=== PATIENT | female | born 1995 | race Caucasian/White ===

== ENCOUNTER 2020-06-30 14:19 | Outpatient (REF) | payer OTHER, SELFPAY ==
[2020-06-30 15:08] LABS: COVID-19 Test Negative (Negative)
== END 2020-06-30 14:20 | disposition home or self-care (01) ==
LOC: HO.LAB 14:19
PROVIDERS: Visit Provider Internal Medicine
DX: Z20.828 Contact with and (suspected) exposure to other viral communicable diseases (principal)
CPT/HCPCS: 87635

== ENCOUNTER 2020-07-21 11:34 | Outpatient (REF) | payer OTHER, SELFPAY ==
[2020-07-21 12:31] LABS: MANUAL DIFF FLAG NO
[2020-07-21 12:50] LABS: Basophils Percent Auto 0.4 % (0-2); Eosinophils Absolute Auto 0.1 X10*3/uL (0.0-0.4); Eosinophils Percent Auto 1.8 % (0-4); Hematocrit 42.3 % (37-47); Hemoglobin 13.8 g/dl (12.0-16.0); Imm Gran Abs Auto 0.01 X10*3/uL (0.00-0.03); Imm Gran Pct Auto 0.1 % (0.0-0.4); Lymphocytes Absolute Auto 2.2 X10*3/uL (1.2-4.9); Lymphocytes Percent Auto 30.2 % (20-40); Mean Corpuscular HGB Conc 32.6 g/dl (31.0-35.0); Mean Corpuscular Hemoglobin 28.9 pg (27.0-33.0); Mean Corpuscular Volume 88.7 fL (80-98); Mean Platelet Volume 10.7 fL (9.4-12.3); Monocytes Absolute Auto 0.5 X10*3/uL (0.1-1.2); Monocytes Percent Auto 6.2 % (2-11); Neutrophils Absolute Auto 4.5 X10*3/uL (2.0-8.3); Neutrophils Percent Auto 61.3 % (45-73); Platelet Count 344 X10*3/uL (160-400); Red Blood Count 4.77 X10*6/uL (4.20-5.50); Red Cell Distribution Width 12.5 % (11.0-16.0); White Blood Count 7.4 X10*3/uL (4.8-10.8)
[2020-07-21 13:37] LABS: TSH reflex Free T4 0.58 mIU/mL (0.32-4.0); Vitamin D 25-OH Total 25.9 ng/mL (>30)
[2020-07-21 13:42] LABS: Folate 16.4 ng/mL (> or = 4.0); Vitamin B12 493 pg/mL (200-900)
== END 2020-07-21 11:35 | disposition home or self-care (01) ==
LOC: HO.LAB 11:34
PROVIDERS: Visit Provider Internal Medicine
DX: L65.9 Nonscarring hair loss, unspecified (principal); E55.9 Vitamin D deficiency, unspecified
CPT/HCPCS: 36415; 82306; 82607; 82746; 84443; 85025

== ENCOUNTER 2020-11-19 09:53 | Outpatient (REF) | payer OTHER, SELFPAY ==
[2020-11-19 10:56] LABS: Glucose Fasting 101 mg/dL (60-99)
[2020-11-19 11:24] LABS: Vitamin D 25-OH Total 25.3 ng/mL (>30)
== END 2020-11-19 09:54 | disposition home or self-care (01) ==
LOC: HO.LAB 09:53
PROVIDERS: PCP Internal Medicine; Visit Provider Internal Medicine
DX: Z00.01 Encounter for general adult medical examination with abnormal findings (principal); E55.9 Vitamin D deficiency, unspecified
CPT/HCPCS: 36415; 82306; 82947

== ENCOUNTER 2021-10-23 15:12 | Emergency (ER) | payer OTHER, SELFPAY ==
[2021-10-23 15:15] VITALS: BP 140/69; PULSE 79; RESP 18; TEMP 36.7; O2SAT 99; BMI 32.1
[2021-10-23 16:14] LABS: MANUAL DIFF FLAG NO
[2021-10-23 16:16] LABS: Basophils Percent Auto 0.2 % (0-2); Eosinophils Absolute Auto 0.1 X10*3/uL (0.0-0.4); Eosinophils Percent Auto 0.5 % (0-4); Hematocrit 41.8 % (37.0-47.0); Hemoglobin 13.8 g/dl (12.0-16.0); Imm Gran Abs Auto 0.04 X10*3/uL (0.00-0.03); Imm Gran Pct Auto 0.3 % (0.0-0.4); Lymphocytes Absolute Auto 2.1 X10*3/uL (1.2-4.9); Lymphocytes Percent Auto 16.5 % (20-40); Mean Corpuscular Hemoglobin 29.1 pg (27.0-33.0); Mean Platelet Volume 10.5 fL (9.4-12.3); Monocytes Absolute Auto 0.8 X10*3/uL (0.1-1.2); Monocytes Percent Auto 6.2 % (2-11); Neutrophils Absolute Auto 9.9 x10*3/uL (2.0-8.3); Neutrophils Percent Auto 76.3 % (45-73); Platelet Count 340 X10*3/uL (160-400); Red Blood Count 4.75 X10*6/uL (4.20-5.50); Red Cell Distribution Width 12.9 % (11.0-16.0); White Blood Count 12.9 X10*3/uL (4.8-10.8)
--- NOTE | 2021-10-23 16:37 | ECG_ITS ---
Test Reason : SYNCOPY Blood Pressure : / mmHG Vent. Rate : 075 BPM Atrial Rate : 075 BPM P-R Int : 126 ms QRS Dur : 112 ms QT Int : 394 ms P-R-T Axes : 059 041 062 degrees QTc Int : 439 ms Normal sinus rhythm with sinus arrhythmia Incomplete right bundle branch block Borderline ECG No previous ECGs available Referred By: Maria Dinh Electronically Signed By:BERNADINE SALAZAR MD
[2021-10-23 16:41] LABS: Alanine Aminotransferase 11 U/L (0-31); Albumin Level 5.1 g/dL (3.5-5.0); Alkaline Phosphatase 43 U/L (39-117); Anion Gap 12 (12-20); Aspartate Amino Transferase 15 U/L (5-31); Bilirubin Total 0.4 mg/dL (0.0-1.0); Blood Urea Nitrogen 7 mg/dL (9-16); Calcium 10.4 mg/dL (8.4-10.2); Carbon Dioxide 25 mmol/L (22-29); Chloride 109 mmol/L (96-108); Creatinine Clr Calc Pharmacy 112.2; Estimated Glomerular Filt Rate > 60; Glucose Random 93 mg/dL (60-115); Sodium 142 mmol/L (135-145); Total Protein 8.2 g/dL (6.5-8.0)
--- NOTE | 2021-10-23 16:48 | ED.GENADULT ---
HPI - General Adult General Chief complaint: General Medical Stated complaint: near syncope Time Seen by Provider: 10/23/21 16:27 Source: patient and family Mode of arrival: ambulatory Limitations: no limitations History of Present Illness HPI narrative: 25-year-old female a history of anxiety here with reports of near-syncope. Patient tells me she was sitting down when she started to feel very lightheaded and started to have tunnel vision which lasted about 30 seconds. Patient denies any complete loss of consciousness. She did feel like she was going to pass out. There was no incontinence or shaking activity. There was no associated palpitations, chest pain, difficulty breathing or headache. She is now feeling back to baseline. Patient tells me she has been eating and drinking normally. She did recover from COVID 4 weeks ago. She has had no residual symptoms. Patient did discontinue herself from her citalopram 1 month ago. She told me she did not feel like it was helping so she did discontinue it. She was taking 20 mg daily for 1 week she started taking every other day and attempt to wean but then she just stopped it completely. She has had over the last 1 month palpitations which occur at rest. Patient describes them as feeling like her heart is pounding with no other associated symptoms. They do resolve with time. Related Data Previous Rx's Medication Instructions Recorded cholecalciferol (vitamin D3) 1,250 1,250 mcg PO QWEEK #13 cap 12/09/20 mcg (50,000 unit) capsule buspirone 10 mg tablet 10 mg PO BID #60 tab 01/02/21 Allergies Allergy/AdvReac Type Severity Reaction Status Date / Time No Known Allergies Allergy Verified 11/11/20 15:41 [No Known Allergies*] Review of Systems Review of Systems: Yes all other systems are reviewed and are negative Constitutional: Constitutional: Reports no additional constitutional complaints, Denies body ache(s), Denies chills, Denies fever(s), Denies headache(s) and Denies weakness Eyes: Eyes: Reports no additional eye complaints and Denies change in vision ENT: Reports system reviewed and no additional complaints, except as documented, Reports dizziness, Denies headache(s), Denies nasal congestion, Denies nasal discharge and Denies neck pain Cardiovascular: Cardiovascular: Reports no additional cardiovascular complaints, Denies chest pain, Denies leg edema, Reports lightheadedness, Reports palpitations and Denies dyspnea Respiratory: Respiratory: Reports no additional respiratory complaints, Denies cough and Denies dyspnea Gastrointestinal: Gastrointestinal: Reports no additional gastrointestinal complaints, Denies abdominal pain, Denies diarrhea, Denies nausea and Denies vomiting Genitourinary: Genitourinary: Reports no additional female genitourinary complaints and Denies urinary incontinence Musculoskeletal: Musculoskeletal: Reports no additional musculoskeletal complaints, Denies back pain, Denies arthralgias, Denies joint swelling, Denies neck pain, Denies numbness and Denies tingling Integumentary/Breasts: Skin/Breast: Reports system reviewed and no additional complaints, except as docu and Denies rash Neurologic: Reports system reviewed and no additional complaints, except as documented, Denies Abnormal speech present, Reports dizziness, Denies headache(s), Denies numbness, Denies tingling and Denies weakness Endocrine: Endocrine: Reports palpitations PMFSH Past Medical History Attestation statement: The following information was validated with the patient. Source: old records reviewed and nursing notes reviewed Medical History Acne Generalized anxiety disorder Non-scarring hair loss Vitamin D deficiency Surgical History No pertinent past surgical history Family History Family History Father No problems noted. Mother Asthma Social History Social History Alcohol intake: never Advance Directives: No Advance Directives Information Provided: Yes Physical Exam ED Vital Signs: Vital Signs - 24 hr 10/23/21 15:15 10/23/21 17:12 10/23/21 17:14 Temperature 98.1 F Pulse Rate 79 73 77 Respiratory Rate 18 Blood Pressure 140/69 H 120/65 126/71 Pulse Oximetry 99 BMI result Body Mass Index 32.1 Const General: cooperative, healthy appearing, comfortable and no acute distress Orientation/consciousness: patient oriented x3 Limitations: no limitations HENMT Head: Yes normal to inspection Ears: hearing grossly normal bilaterally General nose exam: Normal external nose present Face and sinus: Yes normal facial exam Mouth: Normal oral and palatal mucosa present Throat: Yes posterior oropharynx normal and Yes tonsils normal Eyes General: appearance normal, both eyes and all related structures Pupils: Equal, round and reactive pupils present EOM: EOMs intact bilaterally Neck Neck: Yes normal visual inspection, Yes full ROM and Yes no lymphadenopathy Chest Chest palpation & inspection: normal inspection of the chest Resp Effort & Inspection: normal respiratory effort Auscultation: clear to auscultation bilaterally Cardio Rate: regular rate Rhythm: regular rhythm Peripheral pulses: Peripheral pulses 2+ throughout GI Inspection: Yes normal to inspection Palpation (GI): Soft to palpation and nontender General: Yes no CVA tenderness Back/Spine/Pelvis Back: no CVA tenderness Skin General skin exam: no rashes or lesions noted Neuro General: patient oriented x3 Cranial nerves: Yes CN's II-XII intact bilaterally, Yes Equal, round and reactive pupils present, Yes Bilaterally intact EOM present, Yes Nystagmus not present and Yes Normal facial strength present Cognition (Neuro): normal cognition Speech: No Abnormal speech present Gait exam (Neuro): Normal gait present Motor exam (neuro): 5/5 motor strength present throughout Sensory Exam: Normal double simultaneous stimulation for sensation Coordination: [id number] test normal and tandem gait normal Extrem General: Yes normal to inspection and Yes full ROM Course Course Course Narrative: 25-year-old female here after near syncopal episode wall at work. On arrival the patient is asymptomatic. She feels well. Her vitals are stable. She has no complaints at this time. She does report over the last month she has had some intermittent palpitations which occur with rest. Of note, the patient did discontinue her Celexa quite abruptly about 1 month ago. Normal neurological exam Will check labs, UA, urine , EKG, orthostatics vital signs 1730-labs unremarkable. Ua is negative. Urine is negative. Orthostatics are negative. EKG shows sinus rhythm with sinus arrhythmia incomplete right bundle branch block. This is nonspecific. Troponin is negative. Patient has been feeling well during her to stay in the ER. We discussed she can follow-up with her primary care doctor as well as Cardiology for these episodes of palpitations and the near syncopal episode today. Reviewed worrisome signs and symptoms of when to return to the emergency department. Comfortable discharge home. Medical Decision Making MDM Narrative Medical decision making narrative: Electrolyte abnormality, orthostatic hypotension, tachyarrhythmia, Medical Records Medical records reviewed: Yes I reviewed the patient's medical records. Lab Data Lab results reviewed: Yes I reviewed the patient's lab results. Result diagrams: 10/23/21 16:10 10/23/21 16:10 Labs: Lab Results 10/23/21 10/23/21 10/23/21 Range/Units 16:10 16:10 16:10 WBC 12.9 H (4.8-10.8) X10*3/uL RBC 4.75 (4.20-5.50) X10*6/uL Hgb 13.8 (12.0-16.0) g/dl Hct 41.8 (37.0-47.0) % MCV 88.0 (80.0-98.0) fL MCH 29.1 (27.0-33.0) pg MCHC 33.0 (31.0-35.0) g/dl RDW 12.9 (11.0-16.0) % Plt Count 340 (160-400) X10*3/uL MPV 10.5 (9.4-12.3) fL Immature Gran % (Auto) 0.3 (0.0-0.4) % Neut % (Auto) 76.3 H (45-73) % Lymph % (Auto) 16.5 L (20-40) % [place] % (Auto) 6.2 (2-11) % Eos % (Auto) 0.5 (0-4) % Baso % (Auto) 0.2 (0-2) % Lymph # (Auto) 2.1 (1.2-4.9) X10*3/uL [place] # (Auto) 0.8 (0.1-1.2) X10*3/uL Eos # (Auto) 0.1 (0.0-0.4) X10*3/uL Baso # (Auto) 0.0 (0.0-0.2) X10*3/uL Abs Immat Gran (auto) 0.04 H (0.00-0.03) X10*3/uL Absolute Neuts (auto) 9.9 H (2.0-8.3) x10*3/uL Absolute Nucleated RBC 0.000 (0.0-0.012) X10*3/uL Nucleated RBC % (auto) 0.0 (0.0-0.2) /100WBC Sodium 142 (135-145) mmol/L Potassium 4.0 (3.3-5.1) mmol/L Chloride 109 H (96-108) mmol/L Carbon Dioxide 25 (22-29) mmol/L Anion Gap 12 (12-20) BUN 7 L (9-16) mg/dL Creatinine 0.72 (0.5-1.4) mg/dL Estim Creat Clear Calc 112.2 Estimated GFR > 60 Random Glucose 93 (60-115) mg/dL Calcium 10.4 H (8.4-10.2) mg/dL Magnesium 2.1 (1.6-2.6) mg/dL Total Bilirubin 0.4 (0.0-1.0) mg/dL AST 15 (5-31) U/L ALT 11 (0-31) U/L Alkaline Phosphatase 43 (39-117) U/L Troponin I High Sens < 3.5 (<3.5-17.0) ng/L Total Protein 8.2 H (6.5-8.0) g/dL Albumin 5.1 H (3.5-5.0) g/dL TSH 1.30 (0.32-4.0) uIU/mL Urine Color Urine Appearance Urine pH (5.0-8.0) Ur Specific [place] (1.005-1.025) Urine Protein (NEG-TRACE) MG/DL Urine Glucose (UA) (NEG) MG/DL Urine Ketones (NEG) MG/DL Urine Blood (NEG) Urine Nitrite (NEG) Ur Leukocyte Esterase (NEG) Urine Test (NEGATIVE) 10/23/21 10/23/21 Range/Units 16:31 16:31 WBC (4.8-10.8) X10*3/uL RBC (4.20-5.50) X10*6/uL Hgb (12.0-16.0) g/dl Hct (37.0-47.0) % MCV (80.0-98.0) fL MCH (27.0-33.0) pg MCHC (31.0-35.0) g/dl RDW (11.0-16.0) % Plt Count (160-400) X10*3/uL MPV (9.4-12.3) fL Immature Gran % (Auto) (0.0-0.4) % Neut % (Auto) (45-73) % Lymph % (Auto) (20-40) % [place] % (Auto) (2-11) % Eos % (Auto) (0-4) % Baso % (Auto) (0-2) % Lymph # (Auto) (1.2-4.9) X10*3/uL [place] # (Auto) (0.1-1.2) X10*3/uL Eos # (Auto) (0.0-0.4) X10*3/uL Baso # (Auto) (0.0-0.2) X10*3/uL Abs Immat Gran (auto) (0.00-0.03) X10*3/uL Absolute Neuts (auto) (2.0-8.3) x10*3/uL Absolute Nucleated RBC (0.0-0.012) X10*3/uL Nucleated RBC % (auto) (0.0-0.2) /100WBC Sodium (135-145) mmol/L Potassium (3.3-5.1) mmol/L Chloride (96-108) mmol/L Carbon Dioxide (22-29) mmol/L Anion Gap (12-20) BUN (9-16) mg/dL Creatinine (0.5-1.4) mg/dL Estim Creat Clear Calc Estimated GFR Random Glucose (60-115) mg/dL Calcium (8.4-10.2) mg/dL Magnesium (1.6-2.6) mg/dL Total Bilirubin (0.0-1.0) mg/dL AST (5-31) U/L ALT (0-31) U/L Alkaline Phosphatase (39-117) U/L Troponin I High Sens (<3.5-17.0) ng/L Total Protein (6.5-8.0) g/dL Albumin (3.5-5.0) g/dL TSH (0.32-4.0) uIU/mL Urine Color YELLOW Urine Appearance CLEAR Urine pH 7.5 (5.0-8.0) Ur Specific [place] 1.015 (1.005-1.025) Urine Protein NEG (NEG-TRACE) MG/DL Urine Glucose (UA) NEG (NEG) MG/DL Urine Ketones NEG (NEG) MG/DL Urine Blood NEG (NEG) Urine Nitrite NEG (NEG) Ur Leukocyte Esterase NEG (NEG) Urine Test NEGATIVE (NEGATIVE) ECG Data Attestation: I personally reviewed and interpreted this ECG as follows: Interpretation: Normal sinus rhythm with a sinus arrhythmia with a rate of 75, normal [place], normal QRS, normal QT Discharge Plan Discharge Clinical Impression: Near syncope Patient Disposition: Home, Self-Care Instructions: Near Syncope (ED) Additional Instructions: Follow-up with cardiology Prescriptions: No Action buspirone 10 mg tablet 10 mg PO BID Qty: 60 2RF cholecalciferol (vitamin D3) 1,250 mcg (50,000 unit) capsule 1,250 mcg PO QWEEK Qty: 13 0RF Referrals: Ruy Carver MD [Physician] - 2 days Interventions: ED Discharge Assessment Last Done: 10/23/21 18:15 Discharge Date/Time: 10/23/21 18:16
[2021-10-23 16:51] LABS: UPreg QC Valid YES; Urine Pregnancy NEGATIVE (NEGATIVE)
[2021-10-23 16:52] LABS: Appearance Urine CLEAR; Color Urine YELLOW; Glucose Urine UA NEG (NEG); Leukocyte Esterase Urine NEG (NEG); Nitrite Urine NEG (NEG); PH 7.5 (5.0-8.0); Specific Gravity - Urine 1.015 (1.005-1.025); Urine Blood NEG (NEG); Urine Ketones NEG (NEG); Urine Protein NEG (NEG-TRACE)
[2021-10-23 16:59] LABS: Magnesium 2.1 mg/dL (1.6-2.6)
[2021-10-23 17:12] VITALS: BP 120/65; PULSE 73
[2021-10-23 17:14] VITALS: BP 126/71; BP 126/74; PULSE 77; PULSE 79
[2021-10-23 17:52] LABS: Troponin-I High Sensitivity < 3.5 ng/L (<3.5-17.0)
== END 2021-10-23 18:16 | disposition home or self-care (01) ==
PROVIDERS: Nurse Practitioner Family; Emergency Provider Emergency Medicine; PCP Internal Medicine
DX: R55 Syncope and collapse (principal); F41.1 Generalized anxiety disorder; Z86.16 Personal history of COVID-19
CPT/HCPCS: 36415; 80053; 81003; 81025; 83735; 84443; 84484; 85025; 93005; 99283

== ENCOUNTER → 2021-11-01 14:13 | Outpatient (BNVA) | payer OTHER, SELFPAY | PROVIDERS: PCP Internal Medicine; Referring Provider Internal Medicine; Visit Provider Internal Medicine Cardiovascular Disease ==

== ENCOUNTER 2021-11-15 11:31 | Outpatient (REF) | payer OTHER, SELFPAY ==
[2021-11-15 11:47] LABS: MANUAL DIFF FLAG NO
[2021-11-15 12:00] LABS: Basophils Percent Auto 0.5 % (0-2); Eosinophils Absolute Auto 0.1 X10*3/uL (0.0-0.4); Eosinophils Percent Auto 1.5 % (0-4); Hemoglobin 13.8 g/dl (12.0-16.0); Imm Gran Abs Auto 0.01 X10*3/uL (0.00-0.03); Imm Gran Pct Auto 0.1 % (0.0-0.4); Lymphocytes Absolute Auto 2.9 X10*3/uL (1.2-4.9); Lymphocytes Percent Auto 39.6 % (20-40); Mean Corpuscular HGB Conc 32.1 g/dl (31.0-35.0); Mean Corpuscular Hemoglobin 28.9 pg (27.0-33.0); Mean Corpuscular Volume 90.1 fL (80.0-98.0); Monocytes Absolute Auto 0.7 X10*3/uL (0.1-1.2); Monocytes Percent Auto 8.9 % (2-11); Neutrophils Absolute Auto 3.6 x10*3/uL (2.0-8.3); Neutrophils Percent Auto 49.4 % (45-73); Platelet Count 311 X10*3/uL (160-400); Red Blood Count 4.77 X10*6/uL (4.20-5.50); Red Cell Distribution Width 12.8 % (11.0-16.0); White Blood Count 7.3 X10*3/uL (4.8-10.8)
[2021-11-15 12:19] LABS: Alanine Aminotransferase 9 U/L (0-31); Aspartate Amino Transferase 13 U/L (5-31); Cholesterol 171 mg/dL; HDL Cholesterol 37 mg/dL; LDL Cholesterol Calculated 107 mg/dl; Triglycerides 136 mg/dL
[2021-11-15 12:40] LABS: Vitamin D 25-OH Total 18.7 ng/mL (>30)
[2021-11-16 14:11] LABS: Calcium, Ionized 4.7 mg/dL (4.8-5.6)
== END 2021-11-15 11:32 | disposition home or self-care (01) ==
LOC: HO.LAB 11:31
PROVIDERS: PCP Internal Medicine; Visit Provider Internal Medicine
DX: Z00.01 Encounter for general adult medical examination with abnormal findings (principal); E55.9 Vitamin D deficiency, unspecified; F41.1 Generalized anxiety disorder; E83.52 Hypercalcemia
CPT/HCPCS: 36415; 80061; 82306; 82330; 84450; 84460; 85025

== ENCOUNTER → 2021-11-16 10:32 | Outpatient (REF) | payer OTHER, SELFPAY | LOC: HO.CARD 10:32 | PROVIDERS: Visit Provider Internal Medicine Cardiovascular Disease | DX: Z13.89 Encounter for screening for other disorder (principal) ==

== ENCOUNTER 2021-11-24 14:45 | Outpatient (REF) | payer OTHER, SELFPAY ==
[2021-11-25 02:48] LABS: CT PCR NOT DETECTED (Not Detect.); NG PCR NOT DETECTED (Not Detect.)
[2021-11-25 14:20] LABS: BV Int Neg Control Negative (Negative); BV Int Pos Control Positive (Positive)
== END 2021-11-24 14:46 | disposition home or self-care (01) ==
LOC: HO.LAB 14:45
PROVIDERS: PCP Internal Medicine; Visit Provider Advanced Practice Midwife
DX: Z01.411 Encounter for gynecological examination (general) (routine) with abnormal findings (principal); N63.0 Unspecified lump in unspecified breast; Z20.2 Contact with and (suspected) exposure to infections with a predominantly sexual mode of transmission
CPT/HCPCS: 87480; 87491; 87510; 87591; 87660; 88142

== ENCOUNTER 2021-12-06 08:17 | Outpatient (REF) | payer OTHER, SELFPAY ==
--- NOTE | ~2021-12-06 | US_ITS ---
EXAMINATION: US DIAGNOSTIC ULTRASOUND BREAST, RIGHT US DIAGNOSTIC ULTRASOUND BREAST, LEFT CLINICAL INFORMATION: 26-year-old with palpable fullness bilateral upper breasts at routine clinical exam. No known family history breast cancer. No prior breast imaging. COMPARISON: None. TECHNIQUE: Ultrasound of each breast is targeted to the upper breast 11:00 through 1:00 position using grayscale imaging and color Doppler without and with harmonics. FINDINGS: Right: There is a group of 3 circumscribed smooth hypoechoic nodules 1:00 position 7 cm from nipple, the largest measuring only 0.7 x 0.4 x 0.5 cm. This is nearly anechoic and shows no peripheral or internal color flow. There is no definite increased through-transmission of sound. The 2 adjacent satellite nodules are both just under 0.5 cm and circumscribed without color flow. The findings may represent small fibroadenomas or mildly complicated cysts with apocrine metaplasia. Remainder of right breast imaging is unremarkable. Left: There is no focal suspicious finding. There is no cystic or solid mass, architectural abnormality, duct ectasia, or edema in the soft tissue planes. Results are discussed with the patient and her at time of visit. US/US breast LT limited IMPRESSION: Right: -Group of 3 benign-appearing smooth nodules, largest only 7 mm. No color flow or shadowing. -These may represent small fibroadenomas or mildly complicated cysts with apocrine metaplasia. Left: -Normal study. ASSESSMENT: BI-RADS 3: Probably Benign RECOMMENDATION: Targeted right breast ultrasound in 6 months. This patient's information was entered into a reminder system with a target due date for their next breast imaging.
--- NOTE | ~2021-12-06 | US_ITS ---
EXAMINATION: US DIAGNOSTIC ULTRASOUND BREAST, RIGHT US DIAGNOSTIC ULTRASOUND BREAST, LEFT CLINICAL INFORMATION: 26-year-old with palpable fullness bilateral upper breasts at routine clinical exam. No known family history breast cancer. No prior breast imaging. COMPARISON: None. TECHNIQUE: Ultrasound of each breast is targeted to the upper breast 11:00 through 1:00 position using grayscale imaging and color Doppler without and with harmonics. FINDINGS: Right: There is a group of 3 circumscribed smooth hypoechoic nodules 1:00 position 7 cm from nipple, the largest measuring only 0.7 x 0.4 x 0.5 cm. This is nearly anechoic and shows no peripheral or internal color flow. There is no definite increased through-transmission of sound. The 2 adjacent satellite nodules are both just under 0.5 cm and circumscribed without color flow. The findings may represent small fibroadenomas or mildly complicated cysts with apocrine metaplasia. Remainder of right breast imaging is unremarkable. Left: There is no focal suspicious finding. There is no cystic or solid mass, architectural abnormality, duct ectasia, or edema in the soft tissue planes. Results are discussed with the patient and her at time of visit. US/US breast RT limited IMPRESSION: Right: -Group of 3 benign-appearing smooth nodules, largest only 7 mm. No color flow or shadowing. -These may represent small fibroadenomas or mildly complicated cysts with apocrine metaplasia. Left: -Normal study. ASSESSMENT: BI-RADS 3: Probably Benign RECOMMENDATION: Targeted right breast ultrasound in 6 months. This patient's information was entered into a reminder system with a target due date for their next breast imaging.
== END 2021-12-06 08:18 | disposition home or self-care (01) ==
LOC: HO.MAMMO 08:17
PROVIDERS: PCP Internal Medicine; Visit Provider Advanced Practice Midwife
DX: N63.15 Unspecified lump in the right breast, overlapping quadrants (principal); N63.25 Unspecified lump in the left breast, overlapping quadrants
CPT/HCPCS: 76642

== ENCOUNTER → 2021-12-08 12:45 | Outpatient (REF) | payer OTHER, SELFPAY ==
--- NOTE | 2021-12-08 12:53 | CA_ITS ---
Transthoracic Echocardiogram Patient (Last, First, Middle): Miriam Iraheta L Gender: Female Date of : 1995 Age: 26 Procedure Date: 12/08/2021 Procedure Type: Transthoracic Echocardiogram Location: OP Height: 154.94 cm Weight: 79.38 kg BSA: 1.78 m2 Heart Rate: bpm BP: 120 / 70 mmHg [employer]: VH/OT Referring MD: Ruy Carver MD Symptoms: R00.2 - Palpitations Study Quality: Good ECG Rhythm: Sinus Conclusions: - The left ventricular systolic function is normal. The calculated ejection fraction is 60% by biplane method. - There is mild tricuspid valve regurgitation. Findings Left Ventricle Normal left ventricular cavity size. There is normal left ventricular wall thickness. The left ventricular systolic function is normal. The calculated ejection fraction is 60% by biplane method. There is no evidence of regional wall motion abnormalities. Diastolic function is normal for age. Right Ventricle Normal right ventricular cavity size and systolic function. Atria Both atria are normal in size. Aortic Valve There is a normal trileaflet aortic valve. There is no aortic valve stenosis. There is no aortic valve regurgitation. Mitral Valve The mitral valve appears normal. There is trace mitral valve regurgitation. There is no mitral valve stenosis. Pulmonic Valve The pulmonic valve is likely normal. Tricuspid Valve Normal tricuspid valve structure. There is mild tricuspid valve regurgitation. The pulmonary artery systolic pressure is normal. Great Vessels The aortic annulus, sinuses of valsalva, sino tubular ridge, and asc aorta are normal in size. Venous The inferior vena cava is normal in size and collapses greater than 50% with inspiration. Pericardium/Pleural There is no evidence of pericardial effusion. Prior Study Comparison No prior study available for comparison. Measurements 2D Linear Measurements IVSd: 0.75 0.6-0.9/0.6-1.0 cm LVIDd: 4.62 3.9-5.3/4.2-5.9 cm LVIDd Index: 2.60 2.4-3.2/2.2-3.1 cm/m2 LVIDs: 2.60 2.0-3.6 cm LVPWd: 0.85 0.7-1.1 cm LA Diam: 3.20 2.7-3.8/3.0-4.0 cm LAIDs Index: 1.80 1.5-2.3 cm/m2 LV Mass: 147.59 67-162/88-224 g LV Mass Index: 82.92 43-95/49-115 g/m2 LVOT Diam: 1.90 3.0+(-)1.3 cm 2D Systolic Function EF 4C: 62.00 >55% EF 2C: 57.90 >55% EF BiP: 60.20 >55% Mitral Valve MV Pk E: 0.91 MV PK A: 0.54 MV Decel Time: 201.00 E/A: 1.70 E'Lateral: 14.60 E'Medial: 11.20 E/E' Med: 8.20 E/E' Lat: 6.30 PHT: 59.00 MVA PHT: 3.73 Decel [place]: 4.54 Aortic Valve AoV Pk Valerio: 1.61 AoV Mn Valerio: 1.19 AoV VTI: 0.35 AoV Pk Grad: 10.00 Aov Mn Grad: 6.00 KRISTIN Cont.VTI: 2.37 LVOT LVOT Pk Valerio: 1.43 LVOT Mn Valerio: 0.97 LVOT VTI: 0.29 LVOT Pk Grad: 8.00 LVOT Mn Grad: 4.00 LVOT Diam: 1.90 LVOT Area: 2.84 Diastolic Function MV Pk E: 0.91 MV Pk A: 0.54 E/A: 1.70 E'Medial: 11.20 E/E' Med: 8.20 E' Laterial: 14.60 E/E' Lat: 6.30 Right Ventricle TAPSE (mm): 1.80 TVS' Valerio: 11.00 Tricuspid Valve TR Pk Valerio: 2.17 TR Pk Grad: 19.00 RA Press: 3.00 RVSP: 23.00 Great Vessels Aorta Sinus of Valsalva: 2.90 2.0-3.5 cm Ao Asc: 2.60 2.1-3.4 cm Ao Arch: 2.30 Pulmonary Valve PV Pk Valerio: 1.03 Peak PV Grad: 4.00 Updated in Other Vendor System with Status of Final Nolberto Cheatham MD electronically signed on 12/10/2021 11:57:19 AM with status of Final
--- NOTE | 2021-12-08 12:53 | ECG_ITS ---
Hook-up date: 2021-12-08 13:00:00 Duration: 47:59:00 Test Indications: SYNCOPE AND COLLAPSE Medications: [id number] QRS complexes * Ventricular ectopics which represent % of total QRS comp. 1 Supraventricular ectopics which represent <1 % of total QRS comp. * Paced QRS complexs which represent % of total QRS comp. VENTRICULAR ECTOPY * Isolated * Bigeminal Cycles * Couplets * Runs * Beats in Runs * Beats LONGEST at * BPM at :: -- * Beats FASTEST at * BPM at :: -- SUPRAVENTRICULAR ECTOPY 1 Isolated 0 Couplets 0 Runs 0 Beats in Runs * Beats LONGEST at * BPM at :: -- * Beats FASTEST at * BPM at :: -- HEART RATES 41 MIN at 22:21:10 2021-12-08 69 AVG 143 MAX at 05:18:21 2021-12-09 LONGEST RR 1.5920 secs at 02:31:13 2021-12-09 S-T LEVELS Channel 1 - 128 mm at 13:00:00 2021-12-08 - 128 mm at 13:00:00 2021-12-08 Channel 2 - 128 mm at 13:00:00 2021-12-08 - 128 mm at 13:00:00 2021-12-08 Channel 3 - 128 mm at 03:21:91 -- - 128 mm at 03:21:91 Underlying rhythm is sinus; Average ventricular rate 69/min; range 41-143/ min. No significant ectopy, tachy or bradyarrhythmias; Patient did not report any symptoms in the diary Referred By: Ruy Carver Overread By: ROSARIO SAUCEDA
== END ==
LOC: HO.CARD 12:45
PROVIDERS: Visit Provider Internal Medicine Cardiovascular Disease
DX: R00.2 Palpitations (principal); R55 Syncope and collapse
CPT/HCPCS: 93225; 93226; 93306

== ENCOUNTER → 2021-12-14 14:56 | Outpatient (BNVA) | payer OTHER, SELFPAY | PROVIDERS: PCP Internal Medicine; Referring Provider Internal Medicine; Visit Provider Internal Medicine Cardiovascular Disease | DX: Z13.89 Encounter for screening for other disorder (principal) ==

== ENCOUNTER 2022-05-24 14:53 | Outpatient (REF) | payer OTHER, SELFPAY ==
--- NOTE | ~2022-05-24 | US_ITS ---
EXAMINATION: US DIAGNOSTIC ULTRASOUND BREAST, RIGHT CLINICAL INFORMATION: 26-year-old for follow-up benign nodularity mid 1:00 right breast. COMPARISON: Baseline breast ultrasound 12/06/2021 (BI-RADS 3). TECHNIQUE: Ultrasound of the right breast is performed with real-time estrdaa scale imaging and color Doppler. Exam is targeted to the upper breast. FINDINGS: There are 2 adjacent circumscribed smooth nodules seen 1:00 position approximately 7 cm from nipple under 1 cm, similar in size and attenuation to prior ultrasound. There is no associated color flow or posterior acoustic shadowing. A smaller third nodule noted previously is not appreciated on current exam. There is no interval solid mass or duct ectasia or edema in soft tissue planes. Results are discussed with the patient and her at time of visit. US/US breast RT complete IMPRESSION: Benign smooth nodularity 1:00 right breast, stable. ASSESSMENT: BI-RADS 3: Probably Benign RECOMMENDATION: Targeted right breast ultrasound, one year follow-up (due in 6 months). This patient's information was entered into a reminder system with a target due date for their next breast imaging.
== END 2022-05-24 14:54 | disposition home or self-care (01) ==
LOC: HO.MAMMO 14:53
PROVIDERS: PCP Internal Medicine; Visit Provider Advanced Practice Midwife
DX: R92.2 Inconclusive mammogram (principal)
CPT/HCPCS: 76641

== ENCOUNTER → 2022-06-27 09:14 | Outpatient (RCR) | payer OTHER, SELFPAY ==
[2020-07-19 09:03] LABS: COVID-19 Test Negative (Negative)
[2020-07-30 08:13] LABS: COVID-19 Test Negative (Negative)
== END | disposition home or self-care (01) ==
LOC: HO.EMPCOV 07-19 07:45
PROVIDERS: Visit Provider Internal Medicine
DX: Z20.828 Contact with and (suspected) exposure to other viral communicable diseases (principal)
CPT/HCPCS: 87635; 90686; C9803; U0003

== ENCOUNTER 2022-11-22 14:48 | Outpatient (REF) | payer OTHER, SELFPAY ==
--- NOTE | ~2022-11-22 | US_ITS ---
EXAMINATION: US DIAGNOSTIC ULTRASOUND BREAST, RIGHT CLINICAL INFORMATION: 26-year-old for follow-up probable benign nodularity mid 1:00 right breast initially noted at diagnostic baseline. Patient currently , midtrimester. COMPARISON: Ultrasound right breast 05/24/2022, 12/06/2021 (diagnostic, BI-RADS 3). TECHNIQUE: Ultrasound is targeted to the upper right breast using grayscale imaging and color Doppler without and with harmonics. FINDINGS: There are no significant changes from prior ultrasound. Again, there are 2 adjacent nodules versus bilobed nodule mid 1:00 position approximately 7 cm from nipple measuring just under 1 cm with similar echogenicity and contours. No associated color flow or posterior acoustic shadowing. No interval cystic or solid mass or architectural abnormality or duct ectasia. Right breast nodule will be reassessed again in 12 months to conclude long-term surveillance. Results are provided to the patient at time of visit by the technologist. US/US breast RT limited IMPRESSION: No significant changes in probable benign nodularity mid 1:00 right breast, stable. ASSESSMENT: BI-RADS 3: Probably Benign RECOMMENDATION: Targeted right breast ultrasound in 12 months.
== END 2022-11-22 14:49 | disposition home or self-care (01) ==
LOC: HO.MAMMO 14:48
PROVIDERS: Visit Provider Advanced Practice Midwife
DX: R92.2 Inconclusive mammogram (principal)
CPT/HCPCS: 76642

== ENCOUNTER 2023-11-26 12:56 | Outpatient (REF) | payer OTHER, SELFPAY ==
--- NOTE | ~2023-11-26 | US_ITS ---
EXAMINATION: US DIAGNOSTIC ULTRASOUND BREAST, RIGHT CLINICAL INFORMATION: Two-year follow-up for right breast mass/complicated cyst at the 1:00 axis, 7 cm from the nipple. COMPARISON: 11/22/2022, 05/24/2022, 12/06/2021. TECHNIQUE: Ultrasound of the breast is performed with real-time estrada scale imaging and color Doppler. Attention was given to the upper inner quadrant to evaluate the known abnormality at the 1:00 axis. FINDINGS: On today's examination, the hypoechoic mass/complicated cyst has significantly smaller on today's examination, located at the 1:00 axis, 7 cm from the nipple, it currently measures 0.6 x 0.3 x 0.5 cm, most recently 1.0 x 0.4 x 0.5 cm. It is near anechoic, with a small degree of through transmission and low-level internal echoes without internal blood flow. Borders are circumscribed and lobulated. This is most likely a fibroadenoma which has remained stable over 2 years and is now considered benign. No further follow-up recommended. Results are discussed with the patient at time of visit. 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 This has been stable over 2 years and is currently smaller than previously. No further follow-up recommended. Recommend the patient resume annual screening mammography at age 40. ASSESSMENT: BI-RADS 2 - Benign Findings RECOMMENDATION: Mammo at 40 or earlier if clinically needed This patient's information was entered into a reminder system with a target due date for their next mammogram.
== END 2023-11-26 12:57 | disposition home or self-care (01) ==
LOC: HO.MAMMO 12:56
PROVIDERS: PCP Internal Medicine; Visit Provider Internal Medicine
DX: N63.12 Unspecified lump in the right breast, upper inner quadrant (principal)
CPT/HCPCS: 76642

== ENCOUNTER → 2023-11-26 13:00 | Outpatient (BNV) | payer OTHER, SELFPAY | PROVIDERS: PCP Internal Medicine; Visit Provider Radiology Diagnostic Radiology | DX: D24.1 Benign neoplasm of right breast (principal) | CPT/HCPCS: 76642 ==

== ENCOUNTER 2023-12-04 07:54 | Outpatient (AMB) | payer OTHER, SELFPAY ==
--- NOTE | 2023-12-04 07:59 | A.OFFPC_ITS ---
Vital Signs 12/04/23 08:00 Height 5 ft 2 in Weight 178 lb BMI 32.6 BP 123/67 Blood Pressure Location Rt brachial Position Sitting Respiration 12 Pulse 77 Pulse Source Pulse Oximeter Temp 97.5 F Temp Source Temporal Artery Scan Pulse Oximetry (%) 98 Oxygen Delivery Method Room Air Intake Visit Reasons: Transfer of care/physical Intake Note: Patient is here today for a transfer of care and a physical. Patient reports she has no concerns. Glove Cutter Required: No Accompanied by: Self / Same As Patient Allergies No Known Allergies [No Known Allergies*] Allergy (Verified 12/04/23 08:13) Medication List - Last Reconciled 12/04/23 by NILO Neal Tobacco use date assessed: 12/04/23 Dental Screening Dental Screen Date: 12/04/23 Did you have a dental visit in the last 12 months?: Yes Did you have a dental problem in the last 6 months where you did not have access to dental care?: No Was dental information given to patient?: Patient has dentist HPI HPI Comments History of Present Illness Details 28-year-old female with generalized anxi ety disorder, vitamin-D deficiency, acne, near-syncope cleared by Cardiology after echo, Holter, tilt- table test in 2021, fibroadenoma of the breast with diagnostic ultrasounds and mammograms done in 2021 and 2023 Surgical: c section x 1 Health maintenance Pap 11/24/2021 Vaccines: UTD on flu and Tdap 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 Maternal first cousin w/ Langerhans cell?histiocytosis Specialists Director Of Marketing Communications Last set of labs done October of 2021 show a normal CBC, normal CMP, normal cholesterol, normal TSH, normal urinalysis Here today for CPE No further pre-syncope events. Feels it was related to anxiety and stress at job. At that time was not eating well and lost about 30 lbs. Since has improved diet. Had a daughter and no further events. Denies any problems with her eyes. No corrective lenses Routine dental appointments No skin concerns PFS Medical History (Updated 12/04/23 @ 08:33 by Le L O'Ez, WINDOWS CONSULTANT-BC) Acne Generalized anxiety disorder Vitamin D deficiency Non-scarring hair loss Surgical History (Updated 12/04/23 @ 08:16 by Nany Reyes CMA) H/O section Family History Father Substance use disorder Mother Asthma Substance use disorder Mental health disorder Maternal Aunt Substance use disorder Paternal Aunt Substance use disorder Maternal Uncle Substance use disorder Paternal Uncle Substance use disorder Social History (Updated 12/04/23 @ 08:09 by Nany Reyes CMA) Household Members: Spouse and Children Household Members Other:: 1 daughter Both parents involved: No Caregiver staying overnight: No Housing: House Are you a primary animal daycare provider to a significant other at home: No Do you presently have visiting nurse or other home services: No 75 years or older and lives alone: No Alcohol intake: never Patient Tobacco Use Status: Never used Tobacco e-Cigarette/Vaping Use: Never Used Use of substances other than those prescribed or required for medical reasons: No Have you been hit, kicked, punched, or otherwise hurt by someone within the past year? If so, by whom?: No Do you feel safe in your current relationship?: Yes Is there a partner from a previous relationship who is making you feel unsafe now?: No Are you made to feel afraid or neglected: No service: No Current occupational status: employed Current occupation: [employer] Current occupational exposures/hazards: No Sexually active: Yes Sexual orientation: Straight/Heterosexual Gender identity: Female Cognitive needs: No Hearing needs: No Vision needs: No Female Reproductive History Menstrual Age of Menarche: 15 Questionnaire PHQ-9 Over the last 2 weeks, how often have you been bothered by any of the following problems? 1. Little interest or pleasure in doing things: not at all 2. Feeling down, depressed, or hopeless: not at all 3. Trouble falling or staying asleep, or sleeping too much: several days 4. Feeling tired or having little energy: several days 5. Poor appetite or overeating: not at all 6. Feeling bad about yourself - or that you are a failure or have let yourself or your family down: not at all 7. Trouble concentrating on things, such as reading the newspaper or watching television: not at all 8. Moving or speaking so slowly that other people could have noticed. Or the opposite - being so fidgety or restless that you have been moving around a lot more than usual: not at all 9. Thoughts that you would be better off or of hurting yourself in some way: not at all Total score: 2 Depression Screening Interpretation: Negative Depression Screening Done: Yes 21231 - PHQ-9 Billing: Yes Source: Developed by Drs. Jose Bradshaw, Citlali Price, Dwayne Art and colleagues, with an educational rashad from [employer]. Thrive Questionnaire Date Thrive assessed: 12/04/23 I am a: Patient What is your living situation today?: I have a steady place to live Within the past 12 months, did the food you bought not last and you didn't have the money to get more?: Never true Within the past 12 months, did you worry whether your food would run out before you got money to buy more?: Never true Do you have trouble paying for medicines?: No Do you have trouble getting transportation to medical appointments?: No Do you have trouble paying your heating and electricity bill?: No Do you have trouble taking care of your child, family member or friend?: No Do you have trouble with day-to-day activities such as bathing, preparing meals, shopping, managing finances, etc.?: No Are you currently unemployed and looking for a job?: No Are you interested in more education?: No Please select the resources that you would like help with: None Currently or been in a relationship where the following occur: no concerns reported THRIVE Score: 0 AUDIT C Alcohol Use Questionnaire (AUDIT-C) 1. How often do you have a drink containing alcohol?: Never 3. How often do you have six or more drinks on one occasion?: Never Total Score: 0 Score Reviewed/Action Taken: Yes FRANNIE-7 AMB Questionnaire FRANNIE-7 Date FRANNIE - 7 assessed: 12/04/23 Feeling nervous, anxious, or on edge: 1 = Several days Not being able to stop or control worryin = Several days Worrying too much about different things: 1 = Several days Trouble relaxin = Several days Being so restless that it is hard to sit still: 1 = Several days Becoming easily annoyed or irritable: 1 = Several days Feeling afraid as if something awful might happen: 0 = Not at all Total FRANNIE-7 score (0-4 normal; 5-9 mild; 10-14 moderate; 15-21 severe): 6 Source: Developed by Drs. Jose Bradshaw, Citlali Price, Dwayne Art and colleagues, with an educational rashad from [employer]. FRANNIE-7 Assessment Billing FRANNIE-7 Assessment Tool: FRANNIE-7 Assessment 26645 Review of Systems Const Details: Constitutional: Denies fever. Skin: Denies rash. Eye: Denies eye pain. ENMT: Denies sore throat and nasal congestion. Respiratory: Denies shortness of breath and cough. Gastrointestinal: Denies nausea, vomiting or abdominal pain. Cardiovascular: Denies chest pain and syncope. Genitourinary: Denies dysuria. Musculoskeletal: Denies back pain and extremity pain. Neurologic: Denies headaches, confusion, and weakness. Psychiatric: Denies suicidal thoughts and substance abuse. Allergy/ Immunologic: Denies impaired immunity. Physical exam (Primary Care) Vital Signs: Last Vital Signs Temp 97.5 F 12/04/23 08:00 Pulse 77 12/04/23 08:00 Resp 12 12/04/23 08:00 BP 123/67 12/04/23 08:00 Pulse Ox 98 12/04/23 08:00 Oxygen Delivery Method Room Air 12/04/23 08:00 BMI result Body Mass Index 32.6 BMI Assessment/Plan discussion: High BMI High, discussed plan: lifestyle Tobacco/Smoking Status: Tobacco use Status Tobacco use date assessed 12/04/23 12/04/23 08:08 Patient Tobacco Use Status Never used Tobacco 12/04/23 08:09 e-Cigarette/Vaping Use Never Used 12/04/23 08:09 PHQ-9: PHQ-9 Score PHQ-9: Total score 2 12/04/23 08:11 Depression Screening Interpretation: Negative Thrive Assessment: Date of Thrive Assessment Date Thrive assessed 12/04/23 12/04/23 08:11 Currently or been in a relationship where the following occur: no concerns reported Const Other: General: Well developed, well nourished, in no acute distress. Appears stated age. Head: Normocephalic, atraumatic. Eyes: Pupils are equal, round and reactive to light and accommodation. Conjunctivae are clear. Vision grossly normal. Ears: TMs clear AU, EACS WNL Nose: Patent, without discharge. Mouth: There are no ulcers or lesions noted. No inflammation, no post nasal drip, no plaques nor exudates. Neck: Supple, no adenopathy or thyromegaly. Lungs: Clear to auscultation bilaterally. No rales, rhonchi or wheeze noted. Good air flow in all beyer. Heart: Regular rate and rhythm. No murmurs, click, rubs or gallops are noted. Abdomen: Bowel sounds present in all quadrants. The abdomen is soft, nontender, with no masses or organomegaly noted. No hernias are noted. Musculoskeletal: Joints are nontender, without swelling, redness, or effusions. Range of motion is observed to be normal. Pulses: Peripheral pulses are equal and palpable bilaterally. Extremities: No clubbing, cyanosis nor edema is noted. Neurologic: Gait and station normal. Cranial Nerves 2-12 intact. Motor strength grossly symmetrical and intact. No sensory loss. Balance normal. Skin: No rashes, ulcers, or lesions noted. Turgor is good. Skin color is good. Hair and nails are without abnormalities. Psych: Normal eye contact, affect and mood appropriate, and normal interactions. Patient is alert and appropriate to context. Assessment and Plan Assessment & Plan (1) Annual physical exam: Code(s): Z00.00 - Encounter for general adult medical examination without abnormal findings (2) Vitamin D deficiency: Comment: Was on supplements several years ago. Has since stopped. We will check labs in update. Code(s): E55.9 - Vitamin D deficiency, unspecified (3) Laboratory exam ordered as part of routine general medical examination: Code(s): Z00.00 - Encounter for general adult medical examination without abnormal findings (4) Generalized anxiety disorder: Comment: Was on citalopram several years ago. Was in counseling several years ago. At the current time her anxiety does not affect her. Reports her anxiety was related to circumstances. Code(s): F41.1 - Generalized anxiety disorder (5) Palpable mass of breast: Comment: fibroadenoma of the breast with diagnostic ultrasounds and mammograms done in 2021 and 2023, no further imaging needed. Patient advised to perform SBE and report any changes or concerns Code(s): N63.0 - Unspecified lump in unspecified breast (6) Cervical cancer screening: Comment: 11/24/2021 Pap is negative Code(s): Z12.4 - Encounter for screening for malignant neoplasm of cervix Plan Return to office in 1 year for a CPE as long as labs are within normal limits Orders: Orders Microalbumin, Random (w Creat) Today E55.9 - Vitamin D deficiency, unspecified, Z00.00 - Encounter for general adult medical examination without abnormal findings TSH reflex Free T4 Today E55.9 - Vitamin D deficiency, unspecified, Z00.00 - Encounter for general adult medical examination without abnormal findings Vitamin D 1,25 dihydroxy Today E55.9 - Vitamin D deficiency, unspecified, Z00.00 - Encounter for general adult medical examination without abnormal findings Comprehensive [place]. Panel Fast Today E55.9 - Vitamin D deficiency, unspecified, Z00.00 - Encounter for general adult medical examination without abnormal findings Lipid Panel Today E55.9 - Vitamin D deficiency, unspecified, Z00.00 - Encounter for general adult medical examination without abnormal findings Patient Instructions: Health screenings for women ages 18 to 39 You should visit your health care provider from time to time, even if you are healthy. The purpose of these visits is to: Screen for medical issues Assess your risk for future medical problems Encourage a healthy lifestyle Update vaccinations and other preventive care services Help you get to know your provider in case of an illness Information Even if you feel fine, you should still see your provider for regular checkups. These visits can help you avoid problems in the future. For example, the only way to find out if you have high blood pressure is to have it checked regularly. High blood sugar and high cholesterol levels also may not have any symptoms in the early stages. A simple blood test can check for these conditions. There are specific times when you should see your provider or receive specific health screenings. The [place] Preventive Services Task Force publishes a list of recommended screenings. Below are screening guidelines for women ages 18 to 39. BLOOD PRESSURE SCREENING Your blood pressure should be checked at least once every 3 to 5 years if: Your blood pressure is in the normal range (top number less than 120 mm Hg and bottom number less than 80 mm Hg) You don't have risk factors for high blood pressure Ask your provider if you need your blood pressure checked more often if: The top number is 120 to 129 mm Hg or the bottom number is 70 to 79 mm Hg You have diabetes, heart disease, kidney problems, are overweight, or have certain other health conditions You have a first-degree relative with high blood pressure You are Black You had high blood pressure during a If the top number is 130 mm Hg or greater or the bottom number is 80 mm Hg or greater, this is considered stage 1 hypertension. Schedule an appointment with your provider to learn how you can reduce your blood pressure. Watch for blood pressure screenings in your area. Ask your provider if you can stop in to have your blood pressure checked. BREAST CANCER SCREENING Experts do not agree about the benefits of breast self-exams in finding breast cancer or saving lives. Talk to your provider about what is best for you. A screening mammogram is not recommended for most women under age 40. Your provider may discuss and recommend mammograms, MRI scans, or ultrasounds if you have an increased risk for breast cancer, such as: A mother or sister who had breast cancer at a young age (most often starting screening earlier than the age the close relative was diagnosed) You carry a high-risk genetic marker CERVICAL CANCER SCREENING Cervical cancer screening should start at age 21 years unless your provider advises otherwise. After the first test: Women ages 21 through 29 should have a Pap test every 3 years. Exoprts do not agree on whether HPV testing is recommended for this age group. Women ages 30 through 65 should be screened with either a Pap test every 3 years or the HPV test every 5 years or both tests every 5 years (called cotesting ). Women who have been treated for precancer (cervical dysplasia) should continue to have Pap tests for 20 years after treatment or until age 65, whichever is longer. If you have had your uterus and cervix removed (total hysterectomy), and you have not been diagnosed with cervical cancer or precancer (high grade cervical neoplasia), you do not need cervical cancer screening. CHOLESTEROL SCREENING Cholesterol screening should begin at: Age 45 for women with no known risk factors for coronary heart disease Age 20 for women with known risk factors for coronary heart disease Repeat cholesterol screening should take place: Every 5 years for women with normal cholesterol levels More often if changes occur in lifestyle (including weight gain and diet) More often if you have diabetes, heart disease, kidney problems, or certain other conditions DIABETES SCREENING You should be screened for diabetes starting at age 35 and then repeated every 3 years if you have no risk factors for diabetes. Screening may need to start earlier and be repeated more often if you have other risk factors for diabetes, such as: You have a first degree relative with diabetes. You are overweight or have obesity. You have high blood pressure, prediabetes, or a history of heart disease. Screening for diabetes should be done if you are planning to become and you are overweight and have other risk factors such as high blood pressure. DENTAL EXAM Go to the dentist once or twice every year for an exam and cleaning. Your dentist will evaluate if you need more frequent visits. EYE EXAM Have an eye exam every 5 to 10 years before age 40. If you have vision problems, have an eye exam every 2 years or more often if recommended by your provider. You should have an eye exam that includes an examination of your retina (back of your eye) at least every year if you have diabetes. IMMUNIZATIONS Commonly needed vaccines include: Flu shot: get one every year. COVID-19 vaccine: ask your provider what is best for you. Tetanus-diphtheria and acellular pertussis (Tdap) vaccine: have one at or after age 19 as one of your tetanus-diphtheria vaccines if you did not receive it as an adolescent. Tetanus-diphtheria: have a booster (or Tdap) every 10 years. Varicella vaccine: receive 2 doses if you never had chickenpox or the varicella vaccine. Hepatitis B vaccine: receive 2, 3, or 4 doses, depending on your exact circumstances. Measles, mumps, and rubella (MMR) vaccine: receive 1 to 2 doses if you are not already immune to MMR. Your provider can tell you if you are immune. Ask your provider about the human papillomavirus (HPV) vaccine if: You have not received the HPV vaccine in the past You have not completed the full vaccine series (you should catch up on this shot) Ask your provider if you should receive other immunizations if you have certain health problems that increase your risk for some diseases such as pneumonia. INFECTIOUS DISEASE SCREENING Women who are sexually active should be screened for chlamydia and gonorrhea up until age 25. Women 25 years and older should be screened for chlamydia and gonorrhea if at high risk. Screening for hepatitis C: All adults ages 18 to 79 should get a one-time test for hepatitis C. people should be screened at every . Screening for human immunodeficiency virus (HIV): All people ages 15 to 65 should get a one-time test for HIV. Depending on your lifestyle and medical history, you may also need to be screened for infections such as syphilis and HIV, as well as other infections. PHYSICAL EXAM All adults should visit their provider from time to time, even if they are he althy. The purpose of these visits is to: Screen for disease Assess your risk of future medical problems Encourage a healthy lifestyle Update your vaccinations and other preventive care services Maintain a relationship with a provider in case of an illness Your height, weight, and BMI should be checked at every exam. During your exam, your provider may ask you about: Depression and anxiety Diet and exercise Alcohol and tobacco use Safety issues, such as using seat belts, smoke detectors, and intimate partner violence Your medicines and risk for interactions SKIN SELF-EXAM Your provider may check your skin for signs of skin cancer, especially if you're at high risk, such as if you: Have had skin cancer before Have close relatives with skin cancer Have a weakened immune system OTHER SCREENING Talk with your provider about colon cancer screening if you have a strong family history of colon cancer or polyps, or if you have had inflammatory bowel disease or polyps yourself. Routine bone density screening of women under 40 is not recommended. Coding Level of Care Code Est Pt Prev Care 18-39y(60083) Diagnoses Annual physical exam Z00.00 Vitamin D deficiency E55.9 Laboratory exam ordered as part of routine general medical examination Z00.00 Generalized anxiety disorder F41.1 Palpable mass of breast N63.0 Cervical cancer screening Z12.4 Additional Codes FRANNIE-7 Assessment Billing - FRANNIE-7 Assessment Tool: FRANNIE-7 Assessment [id number] ([id number])
[2023-12-04 08:00] VITALS: BP 123/67; PULSE 77; RESP 12; TEMP 36.4; O2SAT 98; BMI 32.6
== END 2023-12-04 08:37 | disposition home or self-care (01) ==
PROVIDERS: PCP Nurse Practitioner Family; Visit Provider Nurse Practitioner Family
DX: Z00.00 Encounter for general adult medical examination without abnormal findings (principal); E55.9 Vitamin D deficiency, unspecified; F41.1 Generalized anxiety disorder
CPT/HCPCS: 99395

== ENCOUNTER 2024-01-28 09:36 | Outpatient (AMB) | payer OTHER, SELFPAY ==
[2024-01-28 09:41] VITALS: BP 104/68; PULSE 61; RESP 13; TEMP 36.4; O2SAT 99; BMI 32.6
--- NOTE | 2024-01-28 09:41 | MHC.PC.OV ---
Vital Signs 01/28/24 09:41 Height 5 ft 2 in Weight 178 lb 4 oz BMI 32.6 BP 104/68 Blood Pressure Location Rt brachial Position Sitting Respiration 13 Pulse 61 Pulse Source Pulse Oximeter Temp 97.6 F Temp Source Temporal Artery Scan Pulse Oximetry (%) 99 Oxygen Delivery Method Room Air Intake Visit Reasons: Red raised bettie on side of breast Intake Note: Maprk is on the side of left breast. Patient states it doesnt itch or hurt. 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 Still . Skin is not itchy, painful. Denies any trauma. Denies any fever. No at home remedies. [facility] Medical History Acne Generalized anxiety disorder Vitamin D deficiency Non-scarring hair loss Surgical History H/O section Family History Father Substance use disorder Mother Asthma Substance use disorder Mental health disorder Maternal Aunt Substance use disorder Paternal Aunt Substance use disorder Maternal Uncle Substance use disorder Paternal Uncle Substance use disorder Social History Household Members: Spouse and Children Household Members Other:: 1 daughter Both parents involved: No Caregiver staying overnight: No Housing: House Are you a primary child care centre director to a significant other at home: No Do you presently have visiting nurse or other home services: No 75 years or older and lives alone: No Alcohol intake: never Patient Tobacco Use Status: Never used Tobacco e-Cigarette/Vaping Use: Never Used service: No Current occupational status: employed Current occupation: [employer] Current occupational exposures/hazards: No Sexual orientation: Straight/Heterosexual Gender identity: Female Cognitive needs: No Hearing needs: No Vision needs: No Female Reproductive History Menstrual Age of Menarche: 15 Questionnaire Thrive Questionnaire Date Thrive assessed: 12/04/23 FRANNIE-7 AMB Questionnaire FRANNIE-7 Date FRANNIE - 7 assessed: 12/04/23 Source: Developed by Drs. Jose Bradshaw, Citlali Pirce, Dwayne Art and colleagues, with an educational rashad from [employer]. Review of Systems Const All systems reviewed & are unremarkable except as noted in HPI and below Physical exam (Primary Care) Vital Signs: Last Vital Signs Temp 97.6 F 01/28/24 09:41 Pulse 61 01/28/24 09:41 Resp 13 01/28/24 09:41 BP 104/68 01/28/24 09:41 Pulse Ox 99 01/28/24 09:41 Oxygen Delivery Method Room Air 01/28/24 09:41 BMI result Body Mass Index 32.6 Tobacco/Smoking Status: Tobacco use Status Tobacco use date assessed 12/04/23 01/28/24 09:47 Patient Tobacco Use Status Never used Tobacco 01/28/24 09:47 e-Cigarette/Vaping Use Never Used 01/28/24 09:47 Thrive Assessment: Date of Thrive Assessment Date Thrive assessed 12/04/23 01/28/24 09:47 Chest Chest/axillae images: 1. slightly raised pink borders with clearing center, edges well demarcated, no drainage, c/w a fungal rash 2. same as # 1 Assessment and Plan Assessment & Plan (1) Fungal rash of torso: Code(s): B36.9 - Superficial mycosis, unspecified Plan: Tx with nystatin 3 times per day until cleared. Advised okay to continue to breastfeed as long as the does not ingest the nystatin cream. Advised to cover the area during breast-feeding and/or wash and clear the skin prior to bringing the child to the chest. If the rash does not improve in 2-3 weeks, recommend a follow up in the office. Medications: New nystatin apply to affected area 1 appl topical TID 30 days 30 grams 1RF Patient Instructions: Tx with nystatin 3 times per day until cleared. Advised okay to continue to breastfeed as long as the does not ingest the nystatin cream. Advised to cover the area during breast-feeding and/or wash and clear the skin prior to bringing the child to the chest. If the rash does not improve in 2-3 weeks, recommend a follow up in the office. Coding Level of Care Code Est Pt Level 3 (93995) Diagnoses Fungal rash of torso B36.9
== END 2024-01-28 10:30 | disposition home or self-care (01) ==
PROVIDERS: PCP Nurse Practitioner Family; Visit Provider Nurse Practitioner Family
DX: B36.9 Superficial mycosis, unspecified (principal)
CPT/HCPCS: 99213

== ENCOUNTER 2024-01-28 10:15 | Outpatient (REF) | payer OTHER, SELFPAY ==
[2024-01-28 12:26] LABS: Creatinine Urine 97.67 mg/dL; Microalbum/Creatinine Ratio Ur 6.1 ug/mg cr (<30)
[2024-01-28 12:46] LABS: Alanine Aminotransferase 12 U/L (0-31); Albumin Level 4.7 g/dL (3.5-5.0); Alkaline Phosphatase 56 U/L (39-117); Anion Gap 16 (12-20); Aspartate Amino Transferase 15 U/L (5-31); Bilirubin Total 0.5 mg/dL (0.0-1.0); Blood Urea Nitrogen 14 mg/dL (9-16); Calcium 9.6 mg/dL (8.4-10.2); Carbon Dioxide 24 mmol/L (22-29); Chloride 106 mmol/L (96-108); Cholesterol 168 mg/dL (<200); Estimated Glomerular Filt Rate > 60; Glucose Fasting 80 mg/dL (60-99); HDL Cholesterol 59 mg/dL (>40); LDL Cholesterol Calculated 100 mg/dL (<100); Potassium 4.1 mmol/L (3.3-5.1); Sodium 142 mmol/L (135-145); Total Protein 7.7 g/dL (6.5-8.0); Triglycerides 47 mg/dL (<150)
[2024-01-28 12:47] LABS: TSH reflex Free T4 1.09 uIU/mL (0.32-4.0)
[2024-01-31 17:49] LABS: VITAMIN D (1,25 OH) D3 55 pg/mL; Vit D (1,25-Dihydroxy) Total 55 pg/mL (18-72); Vitamin D (1,25 OH) D2 <8 pg/mL
== END 2024-01-28 10:16 | disposition home or self-care (01) ==
LOC: HO.WFDLDS 10:15
PROVIDERS: Visit Provider Nurse Practitioner Family
DX: Z00.00 Encounter for general adult medical examination without abnormal findings (principal); E55.9 Vitamin D deficiency, unspecified
CPT/HCPCS: 36415; 80053; 80061; 82043; 82570; 82652; 84443